=== PATIENT | male | born 1985 | race Caucasian/White ===

== ENCOUNTER 2025-01-20 22:44 | Emergency (ER) | payer OTHER, SELFPAY ==
--- OUTSIDE RECORDS SUMMARY | 2024-11-24 13:50 | XMS_ITS ---
Author Organization [facility] Address [address] [place] [id number] Care Team Providers Care Radiation Oncologist Name Role Phone None, None Primary Care Provider Keerthi Spencer Unavailable [phone] Results Component Value Reference Range Notes BLOOD GLUCOSE (IH) Reviewed date:11/24/2024 06:11:37 PM Interpretation: Performing Lab: Notes/Report: Blood Glucose 94 70 - 100 mg/dl Lipid Panel ([facility]) Reviewed date:11/24/2024 06:11:01 PM Interpretation: Performing Lab: Notes/Report: TChol <100 0 - 199 mg/dl HDL 33 0 - 59 mg/dl TC/HDL 2.97 0 - 5.1 LDL 82 0 - 99 mg/dl TRG 98 0 - 149 mg/dl REASON FOR VISIT Biometric Screening Problems No Known Problems Vital Signs Respiratory Rate 16 /min 11/24/2024 Blood pressure systolic 120 mm Hg 11/25/19 25 Blood pressure diastolic 74 mm Hg 025 Height 75 in 11/24/2024 Weight 183 lbs 11/24/2024 BMI 22.87 kg/m2 11/24/2024 Encounters Encounter Location Date Provider Diagnosis [id number] [id number] 11/24/2024 Keerthi Dhaliwal Screening for hypertension Z13.6 ; Screening for lipid disorders Z13.220 and Screening for diabetes mellitus Z13.1 Assessments Encounter Date Diagnosis (ICD Code) Assessment Notes Treatment Notes Treatment Clinical Notes Section Notes 11/24/2024 Screening for hypertension (ICD-10 - Z13.6) 11/24/2024 Screening for lipid disorders (ICD-10 - Z13.220) 11/24/2024 Screening for diabetes mellitus (ICD-10 - Z13.1) 11/24/2024 Other Reviewed results of screening with patient as well as recommendatio ns for lifestyle changes as appropriate. Patient expressed understanding . Reminder to document amount of time spent with patient on Biometric Screening and counseling of their results in the Preventative Medicine section. Plan Of Treatment Treatment Notes Assessment Notes Other Reviewed results of screening with patient as well as recommendations for lifestyle changes as appropriate. Patient expressed understanding. Next Appt Details Follow Up: As Needed, Reason : Procedure Notes * Category Sub-Category Detail Notes Capillary Blood Draw* Capillary Finger Stick Benitez bal consent obtained prior to procedure: Yes # of attempts to obtain sample: 1 Location of sample obtained: Right hand Finger: Index Patient tolerated the procedure: Yes Hemostasis achieved: Yes Progress Notes * Jabari JOYAwDOB:[birth year] (39 yo M)Acc No.[id number]:11/24/2024 Screening Visit Progress Not e Patient: Phil WEISS Provider: Emely Dhaliwal NP :1985 A ge:39 Y S ex:Male Date:11/24/2024 External Visit ID:[id number] Address:[address] [place] [address], [id number] Subjective: * Chief Complaints: * 1 . Biometric Screening. * HPI: C onstitutional: 39 y.o. male presents today for a biometric screening. * Medical History: A sthma. * Surgical History: e ye both , lt foot toe amputated . * Hospitalization/Major Diagno stic Procedure: n one . * Family History: F ather: unknown. M other: alive. * Social History: G eneral: . : current smoker. Alcohol (routine assessment/review): occasionally. Illicit drug use: no. Occupation: diesel machanic. Travel outside [place]: no, James Pina, [id number] 11/24/2024 05:57:25 PM EDT >. * Medications: N one Objective: * Vitals: P ulse:72, RR:16, BP:120/74, Ht: 75, Wt: 183, BMI:22.87, Waist Circumference: 32. * Examination: F ocused Exam: GENERAL: a lert and oriented x 4, no acute distress, dress appropriate for the environment & temp, well-groomed, appears well. Assessment: * Assessment: 1. S creening for hypertension - Z13.6 (Primary) 2 . S creening for lipid disorders - Z13.220 3 . S creening for diabetes mellitus - Z13.1 Plan: * Treatment: Value Reference Range T Chol <100 0 - 199 mg/dl * H DL 33 0 - 59 mg/dl * T C/HDL 2.97 0 - 5.1 * L DL 82 0 - 99 mg/dl * T RG 98 0 - 149 mg/dl * Keerthi Dhaliwal 11/24/2024 0 5:48:52 PM EDT > Collected by James RODRIGUEZ and reviewed by provider, Keerthi Dhaliwal 2.?Screening for diabetes mellitus?LAB: BLOOD GLUCOSE (IH) (Collection Date & Time - 11/24/2024 06:10 PM)* Value Reference Range B lood Glucose 94 70 - 100 mg/dl * Keerthi Dhaliwal 11/24/2024 0 5:49:17 PM EDT > Collected by James RODRIGUEZ and reviewed by provider, Keerthi Dhaliwal 3.?Others? Notes:Reviewed results of screening with patient as well as recommendationsfor lifestyle changes as appropriate. Patient expressed understanding.?? Clinical Notes:Reminder to document amount of time spent with patient on BiometricScreening and counseling of their results in the Preventative Medicinesection.?? * Procedures: C apillary Blood Draw*: Capillary Finger Stick V erbal consent obtained prior to procedure Y es, # of attempts to obtain sample 1 , L ocation of sample obtained R ight hand, F romel I ndex, P atient tolerated the procedure Y es, H emostasis achieved Y es. * Procedure Codes: 8 0061 LIPID PANEL, Modifiers: QW , 25461 Glucose; quantitative, blood (except reagent strip), Modifiers: QW , 32288 CAPILLARY BLOOD DRAW, 27381 PREVENTIVE COUNSELING, INDIV * Preventive Medicine: Counseling: B iometric Counseling B iometric: Time (in minutes) Spent Counseling Patient 1 0 Minutes. * Follow Up: A s Needed * Billing Information: * Visit Code: * Procedure Codes: 00775 LIPID PANEL. Modifiers: QW 11356 Glucose; quantitative, blood (except reagent strip). Modifiers: QW 26918 CAPILLARY BLOOD DRAW. 66436 PREVENTIVE COUNSELING, INDIV. Care Plan Details* * Sign off status: Completed true * Provider: Emely Dhaliwal NP Date: 0 11/24/2024 Generated for Michael matute/Nika/Payal on: 0 01/21/2025 12:47 AM CDT History and Physical Notes * Examination Category Sub-Category Detail Notes Category Not es Focused Exam GENERAL: alert and orient ed x 4, no acute distress, dress appropriate for the environment & temp, well-groomed, appears well
[2025-01-20 22:52] VITALS: BP 140/88; PULSE 92; RESP 20; TEMP 36.6; O2SAT 98; BMI 25.3
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
[2025-01-20 23:08] LABS: Microscopic, Urine URINE MICROSCOPIC (MICROSCOPIC)
[2025-01-20 23:12] LABS: Hematocrit 44.2 % (42.0-52.0); Hemoglobin 14.5 g/dL (14.1-18.0); Immature Granulocytes % 0.3 %; Mean Corpuscular HGB Conc 32.8 g/dL (31.8-35.4); Mean Corpuscular Hemoglobin 27.3 pg (27.0-31.2); Mean Corpuscular Volume 83.1 fl (80-94); Nucleated Red Blood Cells % 0 %; Platelet Count 209 K/mm3 (142-424); Red Blood Count 5.32 M/mm3 (4.60-6.20); Red Cell Distribution Width-SD 41.6 fL; White Blood Count 11.5 K/mm3 (4.8-10.8)
[2025-01-20 23:13] LABS: Bilirubin,Urine Negative (Negative); Color,Urine YELLOW (Yellow); Glucose,Urine (UA) Negative (Negative); Ketones,Urine Negative (Negative); Leukocyte Esterase,Urine Negative (Negative); PH,Urine 6.0 (5.0-8.5); Protein,Urine Negative (Negative); Specific Gravity, Urine <= 1.005 (1.005-1.030); Urobilinogen,Urine 0.2 EU/dl (0.2)
[2025-01-20 23:28] LABS: Activated Partial Thrombo Time 27.1 seconds (22.8-30.6); INR 0.99 (0.9-1.1); Prothrombin Time 11.0 seconds (10.1-12.5)
[2025-01-20 23:29] LABS: Albumin Level 5.1 g/dl (3.5-5.0); Chloride 106 mmol/L (98-107); Potassium 3.6 mmoL/L (3.5-5.1); Sodium 140 mmol/L (136-145)
[2025-01-20 23:30] VITALS: BP 132/73; PULSE 83; O2SAT 95
[2025-01-20 23:31] LABS: Alanine Aminotransferase 33 U/L (12-78); Aspartate Amino Transferase 47 U/L (17-59); Blood Urea Nitrogen 12 mg/dl (9-20); Creatinine Clearance Estimated 165 mL/min (50-200); Creatinine,Serum 0.80 mg/dl (0.66-1.25); Estimated Glomerular Filt Rate 109 ml/min (>60); GFR (African American) 132 ML/MIN (>60)
[2025-01-20 23:32] LABS: Albumin/Globulin Ratio 1.8 (1.1-1.8); Alkaline Phosphatase 62 U/L (38-126); Anion Gap 12.6 mEq/L (5-15); Bilirubin,Total 0.3 mg/dl (0.2-1.3); Calcium 9.3 mg/dl (8.4-10.2); Carbon Dioxide 25 mmol/L (22.0-30.0); Globulin 2.9 g/dL (1.3-3.2); Glucose 95 mg/dl (74-100); Lipase 221 U/L (23-300); Total Protein,Serum 8.0 g/dl (6.3-8.2)
[2025-01-20] MEDS: 0.9 % SODIUM CHLORIDE 50 ML VIAL 80 ML IV (23:44)
[2025-01-20] MEDS: SODIUM CHLORIDE 0.9% 10ML SYR (RAD ONLY) 10 ML IV (23:44)
[2025-01-20] MEDS: IOPAMIDOL-370 (76%);100ML BOTTLE 160 ML IV (23:44)
[2025-01-20 23:59] LABS: Bacteria,Urine Trace /lpf; Squamous Epithelial Cell,Urine Occasional #/hpf (0-5); WBC,Urine Occasional #/hpf (0-3)
[2025-01-21 00:06] VITALS: PULSE 99; O2SAT 98
[2025-01-21 00:15] VITALS: PULSE 91; O2SAT 98
[2025-01-21 00:30] VITALS: PULSE 87; O2SAT 96
[2025-01-21] MEDS: TET/DIPHTH/PERT-ADULT 0.5ML SYRINGE 0.5 ML IM (00:44)
--- OUTSIDE RECORDS SUMMARY | 2025-01-21 01:47 | XMS_ITS | Patient Health Record ---
Author Organization [facility] Address [address] [place] [address] Care Team Providers Care Bilingual Research Interviewer Name Role Phone None, None Primary Care Provider Keerthi Spencer Unavailable [phone] Results Component Value Reference Range Notes Lipid Panel (IH) Reviewed date:11/24/2024 06:11:01 PM Interpretation: Performing Lab: Notes/Report: TChol <100 0 - 199 mg/dl HDL 33 0 - 59 mg/dl TC/HDL 2.97 0 - 5.1 LDL 82 0 - 99 mg/dl TRG 98 0 - 149 mg/dl BLOOD GLUCOSE (IH) Reviewed date:11/24/2024 06:11:37 PM Interpretation: Performing Lab: Notes/Report: Blood Glucose 94 70 - 100 mg/dl Reason For Referral No Information Problems No Known Problems Vital Signs Respiratory Rate 16 /min 11/24/2024 Blood pressure diastolic 74 mm Hg 11/24/2024 Height 75 in 11/24/2024 Blood pressure systolic 120 mm Hg 11/24/2024 Weight 183 lbs 11/24/2024 BMI 22.87 kg/m2 11/24/2024 Encounters Encounter Location Date Provider Diagnosis [id number] [id number] 11/24/2024 Keerthi Dhaliwal Screening for hypertension Z13.6 [...] the Preventative Medicine section. Plan Of Treatment No Information Insurance Providers Payer Name Payer Address Payer Phone Subscriber Number Group Number Insured Name Patient Relationship to Insured Coverage Start Date Coverage End Date [facility] [address] [place] [phone] [id number] Phil Joya Self - patient is the insured Medical (General) History Medical History History ICD Code asthma Surgical History Surgery Date(Month/Year) lt foot toe amputated eye both Hospitalization History Reason Date(Month/Year) none
[2025-01-21 02:05] VITALS: BP 00/00; PULSE 0; RESP 0; TEMP -17.7; TEMP 0; O2SAT 0
== END 2025-01-21 02:08 | disposition home or self-care (01) ==
PROVIDERS: Student in an Organized Health Care Education/Training Program; Emergency Provider Emergency Medicine
DX: S01.01XA Laceration without foreign body of scalp, initial encounter (principal); F10.929 Alcohol use, unspecified with intoxication, unspecified; V49.9XXA Car occupant (driver) (passenger) injured in unspecified traffic accident, initial encounter; Y92.410 Unspecified street and highway as the place of occurrence of the external cause; Y90.8 Blood alcohol level of 240 mg/100 ml or more; Z23 Encounter for immunization
CPT/HCPCS: 12002; 70450; 70496; 70498; 71275; 72125; 72128; 72131; 74175; 80053; 80320; 81001; 83690; 85025; 85610; 85730; 90471; 90715; 99285; Q9967